=== PATIENT | male | born 1995 | race Caucasian/White ===

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

== ENCOUNTER 2017-01-16 07:56 | Outpatient (CLI) | payer BC ==
[~2017-01-16] VITALS: Ht 175.3 cm; Wt 88.6 kg
[2017-01-16 08:17] LABS: HEMATOCRIT 42.5 % (36.0-47.0); HEMOGLOBIN 14.8 g/dl (12.5-16.1); MEAN CELL VOLUME 85 fl (80.0-95.0); MEAN CORPUSCULAR HEMOGLOBIN 29 pg (26.0-32.0); MEAN CORPUSCULAR HGB CONC 35 g/dl (33.0-37.0); MEAN PLATELET VOLUME 8.7 fl (7.4-10.4); PLATELET COUNT 229 K/mm3 (130-400); RED BLOOD COUNT 5.03 M/mm3 (4.20-5.60); REDCELL DISTRIBUTION WIDTH-CV 12.2 % (11.5-14.5); WHITE BLOOD COUNT 6.3 K/mm3 (4.8-10.8)
[2017-01-16 08:29] LABS: ADJUSTED CALCIUM 8.8 mg/dL (8.4-10.2); ALBUMIN 4.5 gm/dL (3.5-5.0); BILIRUBIN,TOTAL 1.1 mg/dL (0.0-1.0); CALCIUM 9.2 mg/dL (8.4-10.2); CREATININE, serum 0.9 mg/dL (0.66-1.25); TOTAL PROTEIN 7.6 gm/dL (6.4-8.2)
[2017-01-16 09:30] VITALS: BP 123/64; PULSE 85; TEMP 98.2
[2017-01-16 10:00] VITALS: BP 107/55; PULSE 83; TEMP 98.1
[2017-01-16 10:30] VITALS: BP 115/67; PULSE 77; TEMP 98.2
[2017-01-16 11:00] VITALS: BP 107/63; PULSE 79; TEMP 98.5
[2017-01-16 11:30] VITALS: BP 110/59; PULSE 82; TEMP 97.7
== END 2017-01-16 12:41 | disposition home or self-care (01) ==
LOC: EUO 07:56
PROVIDERS: Physician Assistant
DX: K50.90 Crohn's disease, unspecified, without complications (principal)
CPT/HCPCS: J1200; J2930; J7050

== ENCOUNTER 2017-02-27 08:02 | Outpatient (CLI) | payer BC ==
[~2017-02-27] VITALS: Ht 175.3 cm; Wt 88.6 kg
[2017-02-27 08:33] LABS: HEMATOCRIT 42.2 % (36.0-47.0); HEMOGLOBIN 14.8 g/dl (12.5-16.1); MEAN CELL VOLUME 85 fl (80.0-95.0); MEAN CORPUSCULAR HEMOGLOBIN 30 pg (26.0-32.0); MEAN CORPUSCULAR HGB CONC 35 g/dl (33.0-37.0); MEAN PLATELET VOLUME 8.8 fl (7.4-10.4); PLATELET COUNT 223 K/mm3 (130-400); RED BLOOD COUNT 4.99 M/mm3 (4.20-5.60); REDCELL DISTRIBUTION WIDTH-CV 12.4 % (11.5-14.5); WHITE BLOOD COUNT 6.4 K/mm3 (4.8-10.8)
[2017-02-27 08:45] LABS: ADJUSTED CALCIUM 9.1 mg/dL (8.4-10.2); ALBUMIN 4.4 gm/dL (3.5-5.0); BILIRUBIN,TOTAL 0.9 mg/dL (0.0-1.0); CALCIUM 9.4 mg/dL (8.4-10.2); CREATININE, serum 0.79 mg/dL (0.66-1.25); POTASSIUM 4.2 mmol/L (3.4-5.0); TOTAL PROTEIN 7.4 gm/dL (6.4-8.2)
[2017-02-27 09:38] VITALS: BP 114/68; PULSE 70; TEMP 98.8
[2017-02-27 10:10] VITALS: BP 110/66; PULSE 83; TEMP 98.5
[2017-02-27 10:40] VITALS: BP 116/56; PULSE 90; TEMP 98.2
[2017-02-27 11:10] VITALS: BP 118/70; PULSE 78; TEMP 98.3
[2017-02-27 11:40] VITALS: BP 118/63; PULSE 76
== END 2017-02-27 12:01 | disposition home or self-care (01) ==
LOC: EUO 08:02
PROVIDERS: Internal Medicine Gastroenterology
DX: K50.90 Crohn's disease, unspecified, without complications (principal); Z79.899 Other long term (current) drug therapy
CPT/HCPCS: J1200; J2930; J7050

== ENCOUNTER 2017-04-10 12:35 | Outpatient (CLI) | payer BC ==
[~2017-04-10] VITALS: Ht 175.3 cm; Wt 89.6 kg
[2017-04-10 13:17] LABS: HEMATOCRIT 40.6 % (36.0-47.0); HEMOGLOBIN 14.2 g/dl (12.5-16.1); MEAN CELL VOLUME 86 fl (80.0-95.0); MEAN CORPUSCULAR HEMOGLOBIN 30 pg (26.0-32.0); MEAN CORPUSCULAR HGB CONC 35 g/dl (33.0-37.0); MEAN PLATELET VOLUME 8.7 fl (7.4-10.4); PLATELET COUNT 205 K/mm3 (130-400); RED BLOOD COUNT 4.74 M/mm3 (4.20-5.60); REDCELL DISTRIBUTION WIDTH-CV 12.3 % (11.5-14.5); WHITE BLOOD COUNT 8.7 K/mm3 (4.8-10.8)
[2017-04-10 13:22] LABS: CALCIUM 9.3 mg/dL (8.4-10.2); CREATININE, serum 0.94 mg/dL (0.66-1.25); POTASSIUM 4.1 mmol/L (3.4-5.0)
[2017-04-10 14:10] VITALS: BP 118/65; PULSE 87; TEMP 97.8
[2017-04-10 14:40] VITALS: BP 112/60; PULSE 79; TEMP 98.2
[2017-04-10 15:10] VITALS: BP 121/64; PULSE 82; TEMP 98.5
[2017-04-10 15:40] VITALS: BP 113/61; PULSE 78; TEMP 98.4
[2017-04-10 16:10] VITALS: BP 126/67; PULSE 86; TEMP 98
== END 2017-04-10 16:26 | disposition home or self-care (01) ==
LOC: EUO 12:35
PROVIDERS: Physician Assistant
DX: K50.90 Crohn's disease, unspecified, without complications (principal); Z79.899 Other long term (current) drug therapy
CPT/HCPCS: J1200; J1745; J2930; J7050

== ENCOUNTER 2017-05-29 12:52 | Outpatient (CLI) | payer BC ==
[~2017-05-29] VITALS: Ht 175.3 cm; Wt 91.0 kg
[2017-05-29 13:10] VITALS: BP 124/65; PULSE 99; TEMP 98.3
[2017-05-29 13:40] LABS: HEMATOCRIT 43.5 % (36.0-47.0); HEMOGLOBIN 15.2 g/dl (12.5-16.1); MEAN CELL VOLUME 86 fl (80.0-95.0); MEAN CORPUSCULAR HEMOGLOBIN 30 pg (26.0-32.0); MEAN CORPUSCULAR HGB CONC 35 g/dl (33.0-37.0); MEAN PLATELET VOLUME 8.7 fl (7.4-10.4); PLATELET COUNT 230 K/mm3 (130-400); RED BLOOD COUNT 5.05 M/mm3 (4.20-5.60); WHITE BLOOD COUNT 8.4 K/mm3 (4.8-10.8)
[2017-05-29 13:49] LABS: ALBUMIN 4.4 gm/dL (3.5-5.0); BILIRUBIN,TOTAL 0.6 mg/dL (0.0-1.0); CALCIUM 9.3 mg/dL (8.4-10.2); CREATININE, serum 0.82 mg/dL (0.66-1.25); POTASSIUM 4.1 mmol/L (3.4-5.0); TOTAL PROTEIN 7.5 gm/dL (6.4-8.2)
[2017-05-29 14:51] VITALS: BP 117/59; PULSE 87; TEMP 97.7
[2017-05-29 15:30] VITALS: BP 119/55; PULSE 78; TEMP 98
[2017-05-29 16:15] VITALS: BP 115/58; PULSE 82; TEMP 98.5
[2017-05-29 17:00] VITALS: BP 120/63; PULSE 97; TEMP 98
[2017-05-29 17:45] VITALS: BP 124/73; PULSE 72; TEMP 98.5
== END 2017-05-29 17:55 | disposition home or self-care (01) ==
LOC: EUO 12:52
PROVIDERS: Physician Assistant
DX: K50.90 Crohn's disease, unspecified, without complications (principal); Z79.899 Other long term (current) drug therapy
CPT/HCPCS: J1200; J1745; J2930; J7050

== ENCOUNTER 2017-08-24 13:41 | Outpatient (CLI) | payer BC ==
[~2017-08-24] VITALS: Ht 175.3 cm; Wt 92.8 kg
[2017-08-24 14:14] LABS: HEMATOCRIT 42.3 % (36.0-47.0); HEMOGLOBIN 14.6 g/dl (12.5-16.1); MEAN CELL VOLUME 85 fl (80.0-95.0); MEAN CORPUSCULAR HEMOGLOBIN 29 pg (26.0-32.0); MEAN CORPUSCULAR HGB CONC 35 g/dl (33.0-37.0); MEAN PLATELET VOLUME 8.9 fl (7.4-10.4); PLATELET COUNT 227 K/mm3 (130-400); RED BLOOD COUNT 4.97 M/mm3 (4.20-5.60); REDCELL DISTRIBUTION WIDTH-CV 12.2 % (11.5-14.5)
[2017-08-24 14:23] LABS: ALBUMIN 4.6 gm/dL (3.5-5.0); BILIRUBIN,TOTAL 0.6 mg/dL (0.0-1.0); CALCIUM 9.4 mg/dL (8.4-10.2); CREATININE, serum 0.82 mg/dL (0.66-1.25); POTASSIUM 4.2 mmol/L (3.4-5.0); TOTAL PROTEIN 7.6 gm/dL (6.4-8.2)
[2017-08-24 14:33] VITALS: BP 130/83; PULSE 66; TEMP 98
== END 2017-09-03 10:52 | disposition home or self-care (01) ==
LOC: EUO 13:41
PROVIDERS: Physician Assistant
DX: K50.90 Crohn's disease, unspecified, without complications (principal)
CPT/HCPCS: J1200; J1745; J2930; J7050

== ENCOUNTER 2017-10-05 13:57 | Outpatient (CLI) | payer BC ==
[~2017-10-05] VITALS: Ht 177.8 cm; Wt 91.0 kg
[2017-10-05 14:20] VITALS: BP 121/70; PULSE 94; TEMP 98.1
[2017-10-05 14:31] LABS: HEMOGLOBIN 14.5 g/dl (12.5-16.1); MEAN CELL VOLUME 85 fl (80.0-95.0); MEAN CORPUSCULAR HEMOGLOBIN 30 pg (26.0-32.0); MEAN CORPUSCULAR HGB CONC 35 g/dl (33.0-37.0); MEAN PLATELET VOLUME 8.5 fl (7.4-10.4); PLATELET COUNT 231 K/mm3 (130-400); RED BLOOD COUNT 4.84 M/mm3 (4.20-5.60); REDCELL DISTRIBUTION WIDTH-CV 12.4 % (11.5-14.5)
[2017-10-05 14:52] LABS: ALBUMIN 4.7 gm/dL (3.5-5.0); BILIRUBIN,TOTAL 0.6 mg/dL (0.0-1.0); CALCIUM 9.3 mg/dL (8.4-10.2); CREATININE, serum 0.78 mg/dL (0.66-1.25); POTASSIUM 3.9 mmol/L (3.4-5.0); TOTAL PROTEIN 7.5 gm/dL (6.4-8.2)
[2017-10-05 15:40] VITALS: BP 113/63; PULSE 84; TEMP 98.3
[2017-10-05 16:10] VITALS: BP 107/64; PULSE 80; TEMP 98.7
[2017-10-05 16:40] VITALS: BP 115/63; PULSE 84; TEMP 98
[2017-10-05 17:10] VITALS: BP 108/58; PULSE 66; TEMP 98.2
[2017-10-05 17:40] VITALS: BP 110/62; PULSE 86; TEMP 98.2
== END 2017-10-05 17:53 | disposition home or self-care (01) ==
LOC: EUO 13:57
PROVIDERS: Physician Assistant
DX: K50.90 Crohn's disease, unspecified, without complications (principal)
CPT/HCPCS: J1200; J1745; J2920; J7050

== ENCOUNTER 2017-11-16 14:24 | Outpatient (CLI) | payer BC ==
[~2017-11-16] VITALS: Ht 177.8 cm; Wt 93.2 kg
[2017-11-16 14:41] LABS: HEMATOCRIT 41.1 % (36.0-47.0); HEMOGLOBIN 14.5 g/dl (12.5-16.1); MEAN CELL VOLUME 85 fl (80.0-95.0); MEAN CORPUSCULAR HEMOGLOBIN 30 pg (26.0-32.0); MEAN CORPUSCULAR HGB CONC 35 g/dl (33.0-37.0); MEAN PLATELET VOLUME 8.8 fl (7.4-10.4); PLATELET COUNT 217 K/mm3 (130-400); RED BLOOD COUNT 4.85 M/mm3 (4.20-5.60); REDCELL DISTRIBUTION WIDTH-CV 12.1 % (11.5-14.5)
[2017-11-16 14:55] LABS: ALBUMIN 4.2 gm/dL (3.5-5.0); BILIRUBIN,TOTAL 0.7 mg/dL (0.0-1.0); CALCIUM 9.3 mg/dL (8.4-10.2); CREATININE, serum 0.74 mg/dL (0.66-1.25); TOTAL PROTEIN 7.5 gm/dL (6.4-8.2)
[2017-11-16 15:40] VITALS: BP 115/59; PULSE 76; TEMP 97.5
[2017-11-16 16:10] VITALS: BP 110/57; PULSE 77; TEMP 97.6
[2017-11-16 16:45] VITALS: BP 110/57; PULSE 75; TEMP 98
[2017-11-16 17:04] VITALS: BP 111/63; PULSE 73; TEMP 98.3
== END 2017-11-16 17:57 | disposition home or self-care (01) ==
LOC: EUO 14:24
PROVIDERS: Internal Medicine Gastroenterology
DX: K50.90 Crohn's disease, unspecified, without complications (principal)
CPT/HCPCS: J1200; J1745; J2920; J7050

== ENCOUNTER 2017-12-23 13:50 | Outpatient (CLI) | payer BC ==
[2017-12-23 14:23] LABS: HEMATOCRIT 42.3 % (36.0-47.0); HEMOGLOBIN 14.9 g/dl (12.5-16.1); MEAN CELL VOLUME 84 fl (80.0-95.0); MEAN CORPUSCULAR HEMOGLOBIN 29 pg (26.0-32.0); MEAN CORPUSCULAR HGB CONC 35 g/dl (33.0-37.0); MEAN PLATELET VOLUME 8.7 fl (7.4-10.4); PLATELET COUNT 235 K/mm3 (130-400); RED BLOOD COUNT 5.06 M/mm3 (4.20-5.60); REDCELL DISTRIBUTION WIDTH-CV 11.9 % (11.5-14.5)
[2017-12-23 14:58] LABS: ALBUMIN 4.2 gm/dL (3.5-5.0); BILIRUBIN,TOTAL 0.7 mg/dL (0.0-1.0); CALCIUM 9.2 mg/dL (8.4-10.2); CREATININE, serum 0.9 mg/dL (0.66-1.25); TOTAL PROTEIN 7.6 gm/dL (6.4-8.2)
[2017-12-23 16:03] VITALS: BP 125/69; PULSE 85; TEMP 98.6
[2017-12-23 16:35] VITALS: BP 112/68; PULSE 97; TEMP 98
[2017-12-23 17:10] VITALS: BP 109/84; PULSE 87
[2017-12-23 17:40] VITALS: BP 112/65; PULSE 79
[2017-12-23 18:15] VITALS: BP 128/89; PULSE 98; TEMP 98
== END 2017-12-23 18:24 | disposition home or self-care (01) ==
LOC: EUO 13:50
PROVIDERS: Internal Medicine Gastroenterology
DX: K50.90 Crohn's disease, unspecified, without complications (principal); Z79.899 Other long term (current) drug therapy
CPT/HCPCS: J1200; J1745; J2920; J7050

== ENCOUNTER 2018-02-08 09:59 | Outpatient (CLI) | payer BC ==
[2018-02-08 10:27] LABS: HEMOGLOBIN 15.4 g/dl (13.5-18.0); MEAN CELL VOLUME 83 fl (80.0-100.0); MEAN CORPUSCULAR HEMOGLOBIN 29 pg (27.0-31.0); MEAN CORPUSCULAR HGB CONC 35 g/dl (33.0-37.0); MEAN PLATELET VOLUME 8.8 fl (7.4-10.4); PLATELET COUNT 226 K/mm3 (130-400); RED BLOOD COUNT 5.28 M/mm3 (4.20-5.60); REDCELL DISTRIBUTION WIDTH-CV 12.1 % (11.5-14.5)
[2018-02-08 10:33] LABS: ALBUMIN 4.3 gm/dL (3.5-5.0); BILIRUBIN,TOTAL 0.6 mg/dL (0.0-1.0); CALCIUM 9.6 mg/dL (8.4-10.2); CREATININE, serum 0.78 mg/dL (0.66-1.25); POTASSIUM 4.3 mmol/L (3.4-5.0); TOTAL PROTEIN 7.7 gm/dL (6.4-8.2)
[2018-02-08 10:45] VITALS: BP 116/78; PULSE 73; TEMP 98
[2018-02-08 11:00] VITALS: BP 119/77; PULSE 84; TEMP 98
[2018-02-08 11:30] VITALS: BP 117/76; PULSE 83; TEMP 98
[2018-02-08 11:58] VITALS: BP 115/70; PULSE 85; TEMP 98
[2018-02-08 13:00] VITALS: BP 115/66; PULSE 72; TEMP 98
== END 2018-02-08 13:01 | disposition home or self-care (01) ==
LOC: EUO 09:59
PROVIDERS: Physician Assistant
DX: K50.90 Crohn's disease, unspecified, without complications (principal); Z79.899 Other long term (current) drug therapy
CPT/HCPCS: J1200; J1745; J2920; J7050

== ENCOUNTER 2018-03-25 12:25 | Outpatient (CLI) | payer BC ==
[~2018-03-25] VITALS: Ht 177.8 cm; Wt 93.0 kg
[2018-03-25 13:17] LABS: HEMATOCRIT 39.5 % (42.0-52.0); HEMOGLOBIN 14.1 g/dl (13.5-18.0); MEAN CELL VOLUME 83 fl (80.0-100.0); MEAN CORPUSCULAR HEMOGLOBIN 30 pg (27.0-31.0); MEAN CORPUSCULAR HGB CONC 36 g/dl (33.0-37.0); MEAN PLATELET VOLUME 8.6 fl (7.4-10.4); PLATELET COUNT 232 K/mm3 (130-400); RED BLOOD COUNT 4.78 M/mm3 (4.20-5.60); REDCELL DISTRIBUTION WIDTH-CV 12.2 % (11.5-14.5)
[2018-03-25 13:25] VITALS: BP 125/68; PULSE 92; TEMP 98
[2018-03-25 13:26] LABS: ALBUMIN 4.3 gm/dL (3.5-5.0); BILIRUBIN,TOTAL 0.6 mg/dL (0.0-1.0); CALCIUM 9.1 mg/dL (8.4-10.2); CREATININE, serum 0.75 mg/dL (0.66-1.25); TOTAL PROTEIN 7.4 gm/dL (6.4-8.2)
[2018-03-25 14:50] VITALS: BP 118/67; PULSE 74; TEMP 98.8
[2018-03-25 15:20] VITALS: BP 120/72; PULSE 80; TEMP 97.3
[2018-03-25 15:50] VITALS: BP 118/73; PULSE 86; TEMP 98.2
[2018-03-25 16:20] VITALS: BP 121/73; PULSE 92; TEMP 98.9
== END 2018-03-25 16:30 | disposition home or self-care (01) ==
LOC: EUO 12:25
PROVIDERS: Internal Medicine Gastroenterology
DX: K50.90 Crohn's disease, unspecified, without complications (principal); Z79.899 Other long term (current) drug therapy
CPT/HCPCS: J1200; J1745; J2920; J7050

== ENCOUNTER 2018-05-12 12:38 | Outpatient (CLI) | payer BC ==
[~2018-05-12] VITALS: Ht 177.8 cm; Wt 92.0 kg
[2018-05-12 13:46] LABS: HEMATOCRIT 42.8 % (42.0-52.0); HEMOGLOBIN 14.9 g/dl (13.5-18.0); MEAN CELL VOLUME 85 fl (80.0-100.0); MEAN CORPUSCULAR HEMOGLOBIN 29 pg (27.0-31.0); MEAN CORPUSCULAR HGB CONC 35 g/dl (33.0-37.0); MEAN PLATELET VOLUME 8.5 fl (7.4-10.4); PLATELET COUNT 245 K/mm3 (130-400); RED BLOOD COUNT 5.06 M/mm3 (4.20-5.60); REDCELL DISTRIBUTION WIDTH-CV 12.1 % (11.5-14.5)
[2018-05-12 13:57] LABS: ALBUMIN 4.3 gm/dL (3.5-5.0); BILIRUBIN,TOTAL 0.7 mg/dL (0.0-1.0); CALCIUM 9.4 mg/dL (8.4-10.2); CREATININE, serum 0.72 mg/dL (0.66-1.25); POTASSIUM 3.9 mmol/L (3.4-5.0); TOTAL PROTEIN 7.6 gm/dL (6.4-8.2)
[2018-05-12 14:45] VITALS: BP 120/74; PULSE 85; TEMP 98.3
[2018-05-12 15:15] VITALS: BP 119/69; PULSE 79; TEMP 98
[2018-05-12 15:45] VITALS: BP 124/72; PULSE 80; TEMP 98.1
[2018-05-12 16:15] VITALS: BP 125/72; PULSE 82; TEMP 98.1
[2018-05-12 16:45] VITALS: BP 126/72; PULSE 91; TEMP 98.1
== END 2018-05-12 16:59 | disposition home or self-care (01) ==
LOC: EUO 12:38
PROVIDERS: Internal Medicine Gastroenterology
DX: K50.90 Crohn's disease, unspecified, without complications (principal); Z79.899 Other long term (current) drug therapy
CPT/HCPCS: J1200; J1745; J2930; J7050

== ENCOUNTER 2018-06-28 13:09 | Outpatient (CLI) | payer BC ==
[~2018-06-28] VITALS: Ht 177.8 cm; Wt 93.8 kg
[2018-06-28 13:43] LABS: HEMOGLOBIN 14.8 g/dl (13.5-18.0); MEAN CELL VOLUME 84 fl (80.0-100.0); MEAN CORPUSCULAR HEMOGLOBIN 30 pg (27.0-31.0); MEAN CORPUSCULAR HGB CONC 35 g/dl (33.0-37.0); MEAN PLATELET VOLUME 8.8 fl (7.4-10.4); PLATELET COUNT 228 K/mm3 (130-400); RED BLOOD COUNT 4.98 M/mm3 (4.20-5.60); REDCELL DISTRIBUTION WIDTH-CV 12.1 % (11.5-14.5)
[2018-06-28 13:53] LABS: ALBUMIN 4.2 gm/dL (3.5-5.0); BILIRUBIN,TOTAL 0.7 mg/dL (0.0-1.0); CALCIUM 9.4 mg/dL (8.4-10.2); CREATININE, serum 0.85 mg/dL (0.66-1.25); POTASSIUM 4.6 mmol/L (3.4-5.0); TOTAL PROTEIN 7.4 gm/dL (6.4-8.2)
[2018-06-28 14:07] VITALS: BP 125/62; PULSE 74; TEMP 98.2
== END 2018-06-28 17:15 | disposition home or self-care (01) ==
LOC: EUO 13:09
PROVIDERS: Internal Medicine Gastroenterology
DX: K50.90 Crohn's disease, unspecified, without complications (principal); Z79.899 Other long term (current) drug therapy
CPT/HCPCS: J1200; J1745; J2920; J7050

== ENCOUNTER 2018-08-19 12:37 | Outpatient (CLI) | payer BC ==
[~2018-08-19] VITALS: Ht 177.8 cm; Wt 93.4 kg
[2018-08-19 13:01] LABS: HEMATOCRIT 43.4 % (42.0-52.0); HEMOGLOBIN 14.9 g/dl (13.5-18.0); MEAN CELL VOLUME 86 fl (80.0-100.0); MEAN CORPUSCULAR HEMOGLOBIN 29 pg (27.0-31.0); MEAN CORPUSCULAR HGB CONC 34 g/dl (33.0-37.0); MEAN PLATELET VOLUME 8.5 fl (7.4-10.4); PLATELET COUNT 235 K/mm3 (130-400); RED BLOOD COUNT 5.07 M/mm3 (4.20-5.60); REDCELL DISTRIBUTION WIDTH-CV 12.5 % (11.5-14.5)
[2018-08-19 13:26] LABS: ALBUMIN 4.4 gm/dL (3.5-5.0); BILIRUBIN,TOTAL 0.7 mg/dL (0.0-1.0); CALCIUM 9.6 mg/dL (8.4-10.2); CREATININE, serum 0.83 mg/dL (0.66-1.25); POTASSIUM 4.3 mmol/L (3.4-5.0); TOTAL PROTEIN 7.6 gm/dL (6.4-8.2)
[2018-08-19 14:46] VITALS: BP 119/69; PULSE 83; TEMP 97.7
[2018-08-19 15:16] VITALS: BP 108/65; PULSE 86
[2018-08-19 15:45] VITALS: BP 115/64; PULSE 78; TEMP 97.2
[2018-08-19 16:15] VITALS: BP 112/64; PULSE 79; TEMP 98.2
[2018-08-19 16:45] VITALS: BP 115/56; PULSE 96; TEMP 97.2
[2018-08-19 17:00] VITALS: BP 123/69; PULSE 96; TEMP 98.1
== END 2018-08-19 17:02 | disposition home or self-care (01) ==
LOC: EUO 12:37
PROVIDERS: Internal Medicine Gastroenterology
DX: K50.90 Crohn's disease, unspecified, without complications (principal)
CPT/HCPCS: J1200; J1745; J2930; J7050

== ENCOUNTER 2018-10-01 13:49 | Outpatient (CLI) | payer BC ==
[~2018-10-01] VITALS: Ht 177.8 cm; Wt 91.0 kg
[2018-10-01 14:25] LABS: HEMATOCRIT 42.5 % (42.0-52.0); HEMOGLOBIN 14.8 g/dl (13.5-18.0); MEAN CELL VOLUME 86 fl (80.0-100.0); MEAN CORPUSCULAR HEMOGLOBIN 30 pg (27.0-31.0); MEAN CORPUSCULAR HGB CONC 35 g/dl (33.0-37.0); MEAN PLATELET VOLUME 8.9 fl (7.4-10.4); PLATELET COUNT 280 K/mm3 (130-400); RED BLOOD COUNT 4.96 M/mm3 (4.20-5.60); REDCELL DISTRIBUTION WIDTH-CV 12.3 % (11.5-14.5)
[2018-10-01 14:40] LABS: ALBUMIN 4.4 gm/dL (3.5-5.0); BILIRUBIN,TOTAL 0.9 mg/dL (0.0-1.0); CALCIUM 9.4 mg/dL (8.4-10.2); CREATININE, serum 0.8 mg/dL (0.66-1.25); POTASSIUM 3.9 mmol/L (3.4-5.0); TOTAL PROTEIN 7.7 gm/dL (6.4-8.2)
[2018-10-01 15:39] VITALS: BP 122/63; PULSE 87; TEMP 97.7
[2018-10-01 16:10] VITALS: BP 121/56; PULSE 82; TEMP 98.6
[2018-10-01 16:40] VITALS: BP 111/48; PULSE 81; TEMP 98.1
[2018-10-01 17:10] VITALS: BP 124/65; PULSE 89; TEMP 97.8
[2018-10-01 17:40] VITALS: BP 119/54; PULSE 85; TEMP 97.9
== END 2018-10-01 17:42 | disposition home or self-care (01) ==
LOC: EUO 13:49
PROVIDERS: Internal Medicine Gastroenterology
DX: K50.90 Crohn's disease, unspecified, without complications (principal); Z79.899 Other long term (current) drug therapy
CPT/HCPCS: J1200; J1745; J2930; J7050

== ENCOUNTER 2018-11-12 13:57 | Outpatient (CLI) | payer BC ==
[~2018-11-12] VITALS: Ht 177.8 cm; Wt 92.5 kg
[2018-11-12 14:20] LABS: HEMATOCRIT 41.7 % (42.0-52.0); HEMOGLOBIN 14.5 g/dl (13.5-18.0); MEAN CELL VOLUME 86 fl (80.0-100.0); MEAN CORPUSCULAR HEMOGLOBIN 30 pg (27.0-31.0); MEAN CORPUSCULAR HGB CONC 35 g/dl (33.0-37.0); MEAN PLATELET VOLUME 9.1 fl (7.4-10.4); PLATELET COUNT 244 K/mm3 (130-400); RED BLOOD COUNT 4.88 M/mm3 (4.20-5.60); REDCELL DISTRIBUTION WIDTH-CV 12.4 % (11.5-14.5)
[2018-11-12 14:25] LABS: ALBUMIN 4.3 gm/dL (3.5-5.0); BILIRUBIN,TOTAL 0.6 mg/dL (0.0-1.0); CALCIUM 9.1 mg/dL (8.4-10.2); CREATININE, serum 0.8 (0.66-1.25); POTASSIUM 4.1 mmol/L (3.4-5.0); TOTAL PROTEIN 7.5 gm/dL (6.4-8.2)
[2018-11-12 15:15] VITALS: BP 119/60; PULSE 75; TEMP 98.4
[2018-11-12 15:30] VITALS: BP 117/58; PULSE 72; TEMP 98.4
[2018-11-12 15:45] VITALS: BP 116/57; PULSE 68; TEMP 98.4
[2018-11-12 16:00] VITALS: BP 112/56; PULSE 68; TEMP 98.4
[2018-11-12 16:30] VITALS: BP 111/58; PULSE 76; TEMP 98.4
[2018-11-12 17:27] VITALS: BP 115/60; PULSE 72; TEMP 98.4
--- NOTE | 2018-11-12 17:27 | NUR ---
INT discontinued intact
== END 2018-11-12 17:28 | disposition home or self-care (01) ==
LOC: EUO 13:57
PROVIDERS: Internal Medicine Gastroenterology
DX: K50.90 Crohn's disease, unspecified, without complications (principal); Z79.899 Other long term (current) drug therapy
CPT/HCPCS: J1200; J1745; J2930; J7050

== ENCOUNTER 2018-12-28 15:00 | Outpatient (CLI) | payer BC ==
[~2018-12-28] VITALS: Ht 177.8 cm; Wt 94.0 kg
[2018-12-28 15:34] LABS: HEMOGLOBIN 15.2 g/dl (13.5-18.0); MEAN CELL VOLUME 85 fl (80.0-100.0); MEAN CORPUSCULAR HEMOGLOBIN 29 pg (27.0-31.0); MEAN CORPUSCULAR HGB CONC 35 g/dl (33.0-37.0); MEAN PLATELET VOLUME 8.5 fl (7.4-10.4); PLATELET COUNT 238 K/mm3 (130-400); RED BLOOD COUNT 5.18 M/mm3 (4.20-5.60)
[2018-12-28 15:43] LABS: ALBUMIN 4.3 gm/dL (3.5-5.0); BILIRUBIN,TOTAL 0.4 mg/dL (0.0-1.0); CALCIUM 9.6 mg/dL (8.4-10.2); CREATININE, serum 0.74 (0.66-1.25); POTASSIUM 4.1 mmol/L (3.4-5.0); TOTAL PROTEIN 7.7 gm/dL (6.4-8.2)
[2018-12-28 16:24] VITALS: BP 114/69; PULSE 84; TEMP 99
[2018-12-28 16:54] VITALS: BP 123/74; PULSE 91; TEMP 98.4
[2018-12-28 17:24] VITALS: BP 126/76; PULSE 94; TEMP 98.4
[2018-12-28 17:54] VITALS: BP 117/80; PULSE 83; TEMP 97.8
[2018-12-28 18:24] VITALS: BP 124/74; PULSE 89; TEMP 98.4
== END 2018-12-28 18:32 | disposition home or self-care (01) ==
LOC: EUO 15:00
PROVIDERS: Internal Medicine Gastroenterology
DX: K50.90 Crohn's disease, unspecified, without complications (principal); Z79.899 Other long term (current) drug therapy
CPT/HCPCS: J1200; J1745; J2930; J7050

== ENCOUNTER 2019-02-04 13:01 | Outpatient (CLI) | payer BC ==
[~2019-02-04] VITALS: Ht 177.8 cm; Wt 92.0 kg
[2019-02-04 13:26] LABS: HEMATOCRIT 41.6 % (42.0-52.0); HEMOGLOBIN 14.5 g/dl (13.5-18.0); MEAN CELL VOLUME 85 fl (80.0-100.0); MEAN CORPUSCULAR HEMOGLOBIN 30 pg (27.0-31.0); MEAN CORPUSCULAR HGB CONC 35 g/dl (33.0-37.0); MEAN PLATELET VOLUME 8.7 fl (7.4-10.4); PLATELET COUNT 222 K/mm3 (130-400); RED BLOOD COUNT 4.91 M/mm3 (4.20-5.60)
[2019-02-04 13:36] LABS: ALBUMIN 4.3 gm/dL (3.5-5.0); BILIRUBIN,TOTAL 0.4 mg/dL (0.0-1.0); CREATININE, serum 0.75 (0.66-1.25); POTASSIUM 4.2 mmol/L (3.4-5.0); TOTAL PROTEIN 7.6 gm/dL (6.4-8.2)
[2019-02-04 14:09] VITALS: BP 109/66; PULSE 92; TEMP 98.5
[2019-02-04 14:55] VITALS: BP 108/64; PULSE 86; TEMP 98.8
[2019-02-04 15:25] VITALS: BP 115/57; PULSE 82; TEMP 98.7
[2019-02-04 15:55] VITALS: BP 118/61; PULSE 98; TEMP 98.6
== END 2019-02-04 16:56 | disposition home or self-care (01) ==
LOC: EUO 13:01
PROVIDERS: Internal Medicine Gastroenterology
DX: K50.90 Crohn's disease, unspecified, without complications (principal); Z79.899 Other long term (current) drug therapy
CPT/HCPCS: J1200; J1745; J2930; J7050

== ENCOUNTER 2019-05-06 14:00 | Outpatient (CLI) | payer BC ==
[~2019-05-06] VITALS: Ht 177.8 cm; Wt 96.4 kg
[2019-05-06] VITALS (7 sets, daily range): BP systolic 109–124; BP diastolic 67–72; PULSE 86–101; TEMP 98.2–98.5
[2019-05-06 14:26] LABS: HEMATOCRIT 42.9 % (42.0-52.0); MEAN CELL VOLUME 85 fl (80.0-100.0); MEAN CORPUSCULAR HEMOGLOBIN 30 pg (27.0-31.0); MEAN CORPUSCULAR HGB CONC 35 g/dl (33.0-37.0); MEAN PLATELET VOLUME 8.5 fl (7.4-10.4); PLATELET COUNT 261 K/mm3 (130-400); RED BLOOD COUNT 5.04 M/mm3 (4.20-5.60)
[2019-05-06 14:38] LABS: ALBUMIN 4.6 gm/dL (3.5-5.0); BILIRUBIN,TOTAL 0.4 mg/dL (0.0-1.0); CALCIUM 9.3 mg/dL (8.4-10.2); CREATININE, serum 0.96 (0.66-1.25); POTASSIUM 4.1 mmol/L (3.4-5.0); TOTAL PROTEIN 7.8 gm/dL (6.4-8.2)
== END 2019-05-06 17:33 | disposition home or self-care (01) ==
LOC: EUO 14:00
PROVIDERS: Internal Medicine Gastroenterology
DX: K50.90 Crohn's disease, unspecified, without complications (principal); Z79.899 Other long term (current) drug therapy
CPT/HCPCS: J1200; J1745; J2930; J7050

== ENCOUNTER 2019-06-24 14:28 | Outpatient (CLI) | payer BC ==
[~2019-06-24] VITALS: Ht 177.8 cm; Wt 98.0 kg
[2019-06-24 15:01] LABS: HEMATOCRIT 43.4 % (42.0-52.0); HEMOGLOBIN 15.5 g/dl (13.5-18.0); MEAN CELL VOLUME 84 fl (80.0-100.0); MEAN CORPUSCULAR HEMOGLOBIN 30 pg (27.0-31.0); MEAN CORPUSCULAR HGB CONC 36 g/dl (33.0-37.0); MEAN PLATELET VOLUME 8.5 fl (7.4-10.4); PLATELET COUNT 256 K/mm3 (130-400); RED BLOOD COUNT 5.14 M/mm3 (4.20-5.60); REDCELL DISTRIBUTION WIDTH-CV 11.9 % (11.5-14.5)
[2019-06-24 15:37] LABS: ALBUMIN 4.6 gm/dL (3.5-5.0); BILIRUBIN,TOTAL 0.4 mg/dL (0.0-1.0); CALCIUM 9.2 mg/dL (8.4-10.2); CREATININE, serum 0.95 (0.66-1.25); POTASSIUM 4.3 mmol/L (3.4-5.0)
[2019-06-24 15:50] VITALS: BP 125/78; PULSE 110; TEMP 98.3
[2019-06-24 16:20] VITALS: BP 121/74; PULSE 106; TEMP 98.3
--- NOTE | 2019-06-24 16:27 | NUR ---
Report to Silva Tang RN who assumed care at this time.
[2019-06-24 16:50] VITALS: BP 116/68; PULSE 95; TEMP 98.4
--- NOTE | 2019-06-24 17:27 | NUR ---
Report to George Steinberg.
[2019-06-24 17:36] VITALS: BP 126/72; PULSE 92; TEMP 98.4
== END 2019-06-24 17:55 | disposition home or self-care (01) ==
LOC: EUO 14:28
PROVIDERS: Internal Medicine Gastroenterology
DX: K50.90 Crohn's disease, unspecified, without complications (principal); Z79.899 Other long term (current) drug therapy
CPT/HCPCS: J1200; J1745; J2930; J7050